=== PATIENT | female | born 1995 | race African-American/Black ===

== ENCOUNTER 2016-12-13 10:21 | Emergency (ER) | payer OTHER ==
[~2016-12-13] VITALS: Ht 165.1 cm; Wt 82.5 kg
[2016-12-13 10:33] VITALS: Ht 165.1 cm; Wt 82.5 kg
[2016-12-13] MEDS ORDERED: HYDROCODONE/APAP (5/325) TAB PO ONE (12:00)
[2016-12-13] MEDS ORDERED: IBUPROFEN 600 MG TAB PO ONE (12:00)
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
== END 2016-12-13 14:26 | disposition left against medical advice (07) ==
LOC: FTE 10:21
DX: S89.92XA Unspecified injury of left lower leg, initial encounter (principal); S39.92XA Unspecified injury of lower back, initial encounter; V03.10XA Pedestrian on foot injured in collision with car, pick-up truck or van in traffic accident, initial encounter
CPT/HCPCS: Z7502; Z7610; 99283